=== PATIENT | male | born 1940 | race Caucasian/White ===

== ENCOUNTER 2021-05-19 17:46 | Emergency (ER) | payer MEDICARE ==
[~2021-05-19] VITALS: Ht 182.9 cm; Wt 125.0 kg
[2021-05-19 18:53] VITALS: BP 118/60
[2021-05-19] MEDS ORDERED: LIDOCAINE 2%/EPI 1:100,000 20 ML VIAL. INJ ONE (19:45)
--- NOTE | 2021-05-19 20:17 | ED.ADGEN ---
Past Medical History Past Medical History: CAD, High Cholesterol, Hypertension Past Surgical History: Appendectomy, Coronary Bypass Surgery, Tonsillectomy Additional Past Surgical Histo: BACK SURGERY, DEFIBRILATOR, "WATCHMAKER" Smoking Status: Never Smoker Alcohol Use: None Drug Use: None General Adult EDM: Chief Complaint: PUNCTURE WOUND HPI: HPI: Patient is a 81 year old male who presents to the emergency department with complaints of a puncture wound to his left wrist. Patient states that he accidentally cut himself with a knife. He reports that his last tetanus shot was a year ago. Patient denies any numbness, tingling, weakness, or decreased range of motion of the affected extremity. Patient states that he does take a daily blood thinner called Eliquis. He currently denies any pain. Review of Systems: Review of Systems: Complete ROS is negative unless otherwise noted in HPI. Current Medications: Current Medications Medications (Trade) Dose Ordered Sig/Melody Start Time Stop Time Status Last Admin Dose Admin Lidocaine/ Epinephrine (LIDOCAINE 2%-EPI 1:100,000 multi-dose) 20 ml 1X ONCE 05/19/21 19:45 05/19/21 20:08 DC Allergies: Allergies: Allergies Coded Allergies Type Severity Reaction Last Updated Verified No Known Drug Allergies 05/19/21 No Physical Exam: PE: See Above Constitutional: Well developed, well nourished, no acute distress, non-toxic appearance. [] HENT: Normocephalic, atraumatic, bilateral external ears normal, nose normal. [] Eyes: PERRLA, EOMI, conjunctiva normal, no discharge. [] Neck: Normal range of motion, no stridor. [] Cardiovascular:Heart rate regular rhythm Lungs & Thorax: Respirations even and unlabored, no retractions, no respiratory distress Skin: Warm, dry; 3 mm x 3 mm V-shaped skin tear to the posterior surface of the left wrist, no visible foreign body, bleeding controlled with bandage in place Extremities: Left wrist: No bony tenderness or deformity, no crepitus, no cyanosis, ROM intact, no edema. [] Neurologic: Alert and oriented X 3, normal motor, normal sensory, no focal deficits noted. [] Psychologic: Affect normal, judgement normal, mood normal. [] Current Patient Data: Vital Signs: Vital Signs Date Time Temp Pulse Resp B/P (MAP) Pulse Ox O2 Delivery O2 Flow Rate FiO2 05/19/21 18:53 98.4 75 12 118/60 95 Room Air 98.4 EKG: EKG: [] Heart Score: C/O Chest Pain: No Radiology/Procedures: Radiology/Procedures: Laceration Repair by me: Anesthesia: None Location: Left wrist Tendon/Joint/Nerves: No injury Foreign body: None detected after copious irrigation and exploration with NS and chlorhexidine Technique: Glued with Dermabond Complexity: No subcutaneous sutures/mucosal repair/edge excision Post Closure Length: 3 mm x 3 mm Patient's bleeding was easily controlled in the department and there is no indication of anemia. No evidence of compartment syndrome, neurologic injury, vascular injury, open joint, tendon laceration, or foreign body. Patient is appropriate for outpatient follow up. [] [] Course & Med Decision Making: Course & Med Decision Making Pertinent Labs and Imaging studies reviewed. (See chart for details) [] Dragon Disclaimer: Dragon Disclaimer: This electronic medical record was generated, in whole or in part, using a voice recognition dictation system. Departure Departure Impression: Primary Impression: Laceration of left wrist without foreign body Disposition: HOME / SELF CARE / HOMELESS Condition: STABLE Patient Instructions: Tissue Adhesive Wound Care, [id number] Additional Instructions: Keep the glued area clean and dry, wear the wrist splint provided until the laceration has healed. Follow-up with your primary care care doctor for wound recheck next week. Return to the ER if you develop redness, warmth, or of a fever. Problem Qualifiers Primary Impression: Laceration of left wrist without foreign body Encounter type: initial encounter Qualified Codes: S61.512A - Laceration without foreign body of left wrist, initial encounter RADHA ZELAYA [employer]ISUAL MERCHANDISER May 19, 2021 20:17
== END 2021-05-19 20:26 | disposition home or self-care (01) ==
LOC: ER 17:46
DX: S61.512A Laceration without foreign body of left wrist, initial encounter (principal); I10 Essential (primary) hypertension; E78.00 Pure hypercholesterolemia, unspecified; I25.10 Atherosclerotic heart disease of native coronary artery without angina pectoris; Z95.1 Presence of aortocoronary bypass graft; W26.0XXA Contact with knife, initial encounter; Y93.89 Activity, other specified; Y92.89 Other specified places as the place of occurrence of the external cause; Y99.8 Other external cause status
CPT/HCPCS: 12001; 99283